=== PATIENT | female | born 1990 | race Hispanic/Latino ===

== ENCOUNTER 2022-12-30 14:41 | Emergency (ER) | payer BC, MEDICAID ==
[~2022-12-30] VITALS: Ht 160 cm; Wt 81.6 kg
[2022-12-30 15:07] VITALS: BP 158/71; PULSE 75; RESP 16; O2SAT 100
[2022-12-30 21:02] LABS: APPEARANCE,URINE CLEAR (CLEAR); BILIRUBIN,URINE NEGATIVE (NEGATIVE); COLOR,URINE LIGHT-YELLOW (YELLOW); GLUCOSE, URINE (UA) NEGATIVE (NEGATIVE); KETONES,URINE NEGATIVE (NEGATIVE); LEUKOCYTE ESTERASE ,URINE 500 Leu/uL (NEGATIVE); NITRATE,URINE NEGATIVE (NEGATIVE); OCCULT BLOOD,URINE NEGATIVE (NEGATIVE); PH,URINE 6.5 (5.0-8.0); PROTEIN,URINE NEGATIVE (NEGATIVE); UROBILINOGEN,URINE 0.2 mg/dL (0.2-1.0)
[2022-12-30 21:03] LABS: ADD UA MICROSCOPIC YES
[2022-12-30 21:23] LABS: BACTERIA,URINE RARE /HPF (None Seen); SQUAMOUS EPITHELIAL CELL,UR MOD /HPF (0-2)
[2022-12-30] MEDS ORDERED: CYCL7.5T27 PO (21:34)
[2022-12-30] MEDS ORDERED: DOCU-116 PO (21:34)
[2022-12-30] MEDS ORDERED: CEFTRIAXONE 1G VIAL IM ONE (22:00)
== END 2022-12-30 21:48 | disposition home or self-care (01) ==
LOC: EDH 14:41
DX: K59.00 Constipation, unspecified (principal); N39.0 Urinary tract infection, site not specified; F32.A Depression, unspecified; F41.9 Anxiety disorder, unspecified; Z90.49 Acquired absence of other specified parts of digestive tract
CPT/HCPCS: 99284; 87088; 81001; 74018; 96372; J0696